=== PATIENT | female | born 2000 | race Two or more races ===

== ENCOUNTER → 2022-09-20 | Outpatient (REF) | payer MEDICARE | LOC: M SFHCWAGY 10:30 | PROVIDERS: ATTEND Nurse Practitioner Family | DX: Z12.4 Encounter for screening for malignant neoplasm of cervix (principal) | CPT/HCPCS: 87624; G0123 ==

== ENCOUNTER 2022-12-05 10:58 | Emergency (ER) | payer MEDICARE, OTHER ==
[~2022-12-05] VITALS: Ht 167.6 cm; Wt 68.3 kg
[2022-12-05] MEDS ORDERED: LEVOTAB10 PO (11:09)
[2022-12-05] MEDS ORDERED: NORE1TAB58 PO (11:09)
[2022-12-05] MEDS ORDERED: ROBI1CAP PO (11:09)
[2022-12-05] MEDS ORDERED: IPRATROPIUM 0.5MG/ALBUTEROL 2.5MG INH SOL UD 3ML (DUONEB) NEB ONE (12:15)
[2022-12-05 12:49] LABS: URINE PREG TEST NEGATIVE (NEGATIVE)
[2022-12-05] MEDS ORDERED: predniSONE 20 MG TAB PO ONE (13:10)
[2022-12-05 13:24] LABS: RSV AMPLIFICATION NEGATIVE (NEGATIVE)
[2022-12-05] MEDS ORDERED: PRED20TA PO (13:57)
[2022-12-05] MEDS ORDERED: VENTAER INH (13:57)
[2022-12-05] MEDS ORDERED: BENZ200C70 PO (13:57)
[2022-12-05 14:10] VITALS: BP 118/77
== END 2022-12-05 14:12 | disposition home or self-care (01) ==
LOC: M ED 10:58
DX: J20.9 Acute bronchitis, unspecified (principal); Z79.52 Long term (current) use of systemic steroids; Z79.899 Other long term (current) drug therapy
CPT/HCPCS: 71046; 84703; 87631; 99283; J7512

== ENCOUNTER → 2023-12-26 | Outpatient (REF) | payer OTHER, MEDICARE ==
[~2023-12-26] MED LIST: BENZ200C70 PO; LEVOTAB10 PO; NORE1TAB58 PO; PRED20TA PO; ROBI1CAP PO; VENTAER INH
[2023-12-28 10:57] LABS: HPV APTIMA Not Detected (Not Detected)
== END ==
LOC: M SFHCWAGY 17:13
PROVIDERS: ATTEND Nurse Practitioner Family
DX: Z12.4 Encounter for screening for malignant neoplasm of cervix (principal); Z11.51 Encounter for screening for human papillomavirus (HPV); B97.7 Papillomavirus as the cause of diseases classified elsewhere; Z01.419 Encounter for gynecological examination (general) (routine) without abnormal findings; Z77.9 Other contact with and (suspected) exposures hazardous to health

== ENCOUNTER → 2025-04-08 | Outpatient (CLI) | payer OTHER ==
[2025-04-08 14:04] LABS: PLATELET COUNT, AUTOMATED 336 10^3/uL (150-450)
[2025-04-08 15:05] LABS: HIV 1&2 SCREEN NEGATIVE (NEGATIVE)
[2025-04-08 15:13] LABS: HEPATITIS C VIRUS ABY INDEX < 0.02 INDEX (<0.8)
[2025-04-08 15:56] LABS: GC DNA AMPLIFICATION NEGATIVE (NEGATIVE); Trichomonas vaginalis (AMP) NOT DETECTED (NEGATIVE)
== END ==
LOC: M PLALAB 09:22
PROVIDERS: ATTEND Nurse Practitioner Family
DX: Z34.02 Encounter for supervision of normal first pregnancy, second trimester (principal); Z3A.14 14 weeks gestation of pregnancy

== ENCOUNTER → 2025-05-13 | Outpatient (CLI) | payer OTHER | LOC: M WHC 11:28 | PROVIDERS: ATTEND Specialist | DX: Z34.82 Encounter for supervision of other normal pregnancy, second trimester (principal); Z3A.18 18 weeks gestation of pregnancy ==

== ENCOUNTER → 2025-06-13 | Outpatient (CLI) | payer OTHER | LOC: M WHC 09:11 | PROVIDERS: ATTEND Nurse Practitioner Family | DX: Z34.82 Encounter for supervision of other normal pregnancy, second trimester (principal); Z3A.22 22 weeks gestation of pregnancy ==

== ENCOUNTER → 2025-06-28 | Outpatient (CLI) | payer OTHER ==
[2025-06-28 17:47] LABS: PLATELET COUNT, AUTOMATED 297 10^3/uL (150-450)
[2025-06-28 18:14] LABS: GLUCOSE CHALLENGE TEST 1 HOUR 93 MG/DL (LESS THAN 140)
[2025-06-28 18:44] LABS: HIV 1&2 SCREEN NEGATIVE (NEGATIVE)
[2025-06-28 18:52] LABS: HEPATITIS C VIRUS ABY INDEX < 0.02 INDEX (<0.8)
[2025-06-28 19:11] LABS: Trichomonas vaginalis (AMP) NOT DETECTED (NEGATIVE)
[2025-06-28 19:35] LABS: GC DNA AMPLIFICATION NEGATIVE (NEGATIVE)
== END ==
LOC: M PLALAB 14:53
PROVIDERS: ATTEND Nurse Practitioner Family
DX: Z34.82 Encounter for supervision of other normal pregnancy, second trimester (principal); Z3A.00 Weeks of gestation of pregnancy not specified

== ENCOUNTER → 2025-07-16 | Outpatient (CLI) | payer OTHER | LOC: M WHC 11:47 | PROVIDERS: ATTEND Nurse Practitioner Family | DX: O36.5920 Maternal care for other known or suspected poor fetal growth, second trimester, not applicable or unspecified (principal); Z3A.27 27 weeks gestation of pregnancy ==

== ENCOUNTER → 2025-07-24 | Outpatient (CLI) | payer OTHER ==
[~2025-07-24] MED LIST changes: +MULTTAB20 PO
[2025-07-26 12:52] LABS: HSV 1 IGG TYPE SPECIFIC < 0.90 index (<0.90)
[2025-07-26 13:16] LABS: CYTOMEGALOVIRUS ANTIBODY IGG < 0.60 U/mL (<0.60); CYTOMEGALOVIRUS IgM ANTIBODY < 30.00 AU/mL (<30.00); HERPES ZOSTER, VARICELLA IgG 1.68 S/CO (>=1.00)
[2025-07-27 22:54] LABS: HERPES ZOSTER, VARICELLA IgM <= 0.90 (<=0.90)
[2025-07-29 14:32] LABS: TOXOPLASMA IGM ANTIBODY < 8.00 AU/mL (<8.00)
[2025-07-31 14:29] LABS: ANTI PARVO VIRUS LEVEL IGG 4.8 (<0.9); ANTI PARVO VIRUS LEVEL IgM 0.1 (<0.9)
== END ==
LOC: M PLALAB 10:40
PROVIDERS: ATTEND Nurse Practitioner Family
DX: O36.5920 Maternal care for other known or suspected poor fetal growth, second trimester, not applicable or unspecified (principal); Z3A.00 Weeks of gestation of pregnancy not specified